=== PATIENT | male | born 1965 | race Caucasian/White ===

== ENCOUNTER 2017-12-08 23:53 | Emergency (ER) | payer OTHER ==
[2014-09-23 14:36] VITALS: BP 132/70
--- NOTE | 2017-12-09 01:04 | ED Physician Documentation ---
Low Back Pain - HISTORIAN Historian: patient, parent - HPI Chief Complaint: General Adult Additional Information: pt here w/mom from [facility] req dialudid for lo back pain stated he had mri recently at [facility] told maybe pain pump. pt on way to [facility]. we refused narcotics the left immediately prior to nurse getting ama. on review pt has been here several times always requests dilaudid. and has been refused before. he was noted to get up amnd down - ROS CONST: no problems - PAST HX Past History: back pain Allergies/Adverse Reactions: Allergies Allergy/AdvReac Type Severity Reaction Status Date / Time butorphanol tartrate Allergy Intermediate Rash Verified 09/22/15 14:11 [From Stadol] ketorolac tromethamine Allergy Intermediate Rash Verified 09/22/15 14:11 [From Toradol] morphine Allergy Intermediate Rash Verified 09/22/15 14:11 nalbuphine HCl [From Nubain] Allergy Intermediate Rash Verified 09/22/15 14:11 orphenadrine citrate Allergy Intermediate Rash Verified 09/22/15 14:11 [From Norflex] Home Medications: Ambulatory Orders Medication Instructions Recorded Allopurinol [Zyloprim] 300 mg PO D 11/11/13 Amlodipine Besylate [Norvasc] 2.5 mg PO D 11/11/13 Atorvastatin Calcium [Lipitor] 40 mg PO D 11/11/13 Lansoprazole [Prevacid] 30 mg PO D 11/11/13 Lisinopril [Lisinopril] 20 mg PO D 11/11/13 Metformin HCl [Glucophage] 1,000 mg PO BID 11/11/13 - VITAL SIGNS Vital Signs: Vital Signs Temp Pulse Resp BP Pulse Ox 132/70 09/22/15 16:20 Discharge Clincal Impression: chronic back pain per hx, morbid obesity, drug seeking behavior - Referrals: Primary Doctor,No [Primary Care Provider] - 2 Days Condition: Fair Disposition: AGAINST MEDICAL ADVICE Decision to Admit: NO Decision Time: 01:32
--- NOTE | 2017-12-09 01:16 | ED Physician Documentation ---
Low Back Pain - HISTORIAN Historian: patient, parent - HPI Stated Complaint: Lower back pain Chief Complaint: Low Back Pain/ Injury Additional Information: pt here from [place], [place] req dilaudid for lo back pain. he reports [facility] mri at [facility] they stated maybe insert pain pump-has sched w neurologists january 2018. they are traveling to [place] meet relatives. pt noted to get up and down w/o difficulty and to ambulate in room w /o difficulty. when I refused dilaudid they promptly got up and left w/o signing AMA on review old records pt has been here several times in past always requesting dilaudid. History: history of chronic pain: Onset: other (years ago) Severity: moderate, severe Quality: similar- prior back pain Associated Symptoms: denies: fever, chills - ROS CONST: no problems (except lo back pain) - PAST HX Past History: back injury, back pain Other History: diabetes Type 1, hypertension, other (gout gerd) Surgeries/Procedures: cholecystectomy (rt ankle) Allergies/Adverse Reactions: Allergies Allergy/AdvReac Type Severity Reaction Status Date / Time butorphanol tartrate Allergy Intermediate Rash Verified 09/22/15 14:11 [From Stadol] ketorolac tromethamine Allergy Intermediate Rash Verified 09/22/15 14:11 [From Toradol] morphine Allergy Intermediate Rash Verified 09/22/15 14:11 nalbuphine HCl [From Nubain] Allergy Intermediate Rash Verified 09/22/15 14:11 orphenadrine citrate Allergy Intermediate Rash Verified 09/22/15 14:11 [From Norflex] Home Medications: Ambulatory Orders Medication Instructions Recorded Allopurinol [Zyloprim] 300 mg PO D 11/11/13 Amlodipine Besylate [Norvasc] 2.5 mg PO D 11/11/13 Atorvastatin Calcium [Lipitor] 40 mg PO D 11/11/13 Lansoprazole [Prevacid] 30 mg PO D 11/11/13 Lisinopril [Lisinopril] 20 mg PO D 11/11/13 Metformin HCl [Glucophage] 1,000 mg PO BID 11/11/13 - SOCIAL HX Smoking History: non-smoker Alcohol Use: none Drug Use: none - FAMILY HX Family History: no significant history - VITAL SIGNS Vital Signs: Vital Signs Temp Pulse Resp BP Pulse Ox 132/70 09/22/15 16:20 - REVIEWED ASSESSMENTS Nursing Assessment Reviewed: Yes Vitals Reviewed: Yes Low Back Pain/Injury - Physical Exam General Appearance: no acute distress (exam was conducted except observatioon. whe he found he was not getting dilaudid he left w/o being seen) Neuro/Psych: oriented x3 Discharge Clincal Impression: chronic back pain per hx, morbid obesity, drug seeking behavior - Referrals: Primary Doctor,No [Primary Care Provider] - 2 Days Condition: Fair Disposition: 07 AGAINST MEDICAL ADVICE Decision to Admit: NO Decision Time: 01:21
== END 2017-12-09 01:00 | disposition left against medical advice (07) ==
LOC: ED 23:53
DX: M54.5 Low back pain (principal); Z65.8 Other specified problems related to psychosocial circumstances
CPT/HCPCS: 99281; 99282